=== PATIENT | male | born 1960 | race Two or more races ===

== ENCOUNTER 2024-11-02 11:08 | Inpatient (IN) | payer OTHER ==
[2024-11-02 11:34] VITALS: BMI 29.2
[2024-11-02] MEDS ORDERED: DICYCLOMINE HCL 10 MG CAPSULE PO PRN (11:35)
[2024-11-02] MEDS ORDERED: ACETAMINOPHEN 325 MG TABLET (FP) PO PRN (11:35)
[2024-11-02] MEDS ORDERED: LOPERAMIDE HCL 2 MG CAPSULE PO PRN (11:35)
[2024-11-02] MEDS ORDERED: guaiFENesin 600 MG TABLET.ER (FP) PO PRN (11:35)
[2024-11-02] MEDS ORDERED: BENZOCAINE/MENTHOL (CHLORASEPTIC ) LOZENGE MM PRN (11:35)
[2024-11-02] MEDS ORDERED: ONDANSETRON *ODT* 4 MG TABLET SL PRN (11:35)
[2024-11-02] MEDS ORDERED: MAGNESIUM HYDROX 2400MG/30ML ORAL SUSPENSION 30 ML CUP PO PRN (11:35)
[2024-11-02] MEDS ORDERED: POLYETHYLENE GLYCOL (HEALTHYLAX) 3350 17 GM PACKET PO PRN (11:35)
[2024-11-02] MEDS ORDERED: BENZONATATE 200 MG CAPSULE PO PRN (11:35)
[2024-11-02] MEDS ORDERED: METHOCARBAMOL 500 MG TABLET PO PRN (11:35)
[2024-11-02] MEDS ORDERED: MAG HYDROX/AL HYDROX/SIMETH 30 ML UNIT-DOSE CUP PO PRN (11:35)
[2024-11-02] MEDS ORDERED: IBUPROFEN 400 MG TABLET (FP) PO PRN (11:35)
[2024-11-02] MEDS ORDERED: BISMUTH SUBSALICYLATE 524 MG/30 ML PO PRN (11:35)
[2024-11-02] MEDS ORDERED: NALOXONE (NARCAN) HCL 4 MG/0.1 ML SPRAY NS PRN (11:35)
[2024-11-02] MEDS ORDERED: LORazepam 2 MG/ML SDV VIAL ONE (11:43)
[2024-11-02] MEDS: LORazepam 2 MG/ML SDV VIAL IM ONE (11:49)
[2024-11-02] MEDS ORDERED: LISINOPRIL 10 MG TABLET ONE ×2 (12:51→12:53)
[2024-11-02] MEDS: LISINOPRIL 10 MG TABLET PO ONE (12:52)
[2024-11-02] MEDS: NALTREXONE HCL 50 MG TABLET PO ONE ×2 (14:03→14:05)
[2024-11-02] MEDS: IBUPROFEN 600 MG TABLET (FP) PO PRN (18:30)
[2024-11-02] MEDS: hydrOXYzine PAMOATE 25 MG CAPSULE (FP) PO PRN (18:30)
[2024-11-02] MEDS: MELATONIN 5 MG TABLETS PO SCH (22:58)
[2024-11-02] MEDS: THIAMINE 100 MG TABLET PO SCH (22:58)
[2024-11-02] MEDS: levETIRAcetam 500 MG TABLET (FP) PO SCH (22:59)
[2024-11-03 10:30] LABS: GLUCOSE,RANDOM 76.0 mg/dL (74-106)
[2024-11-03 10:31] LABS: TOT PROT 7.9 g/dl (6.4-8.2)
[2024-11-03 10:32] LABS: CO2 25.0 mmol/L (21-32)
[2024-11-03 10:33] LABS: ALK PHOS 107.0 U/L (40-150)
[2024-11-03] MEDS: LISINOPRIL 20 MG TABLET PO SCH (10:33)
[2024-11-03] MEDS: PRENATAL VITAMINS W/ FOLIC ACID TABLET (FP) PO SCH (10:33)
[2024-11-03 10:34] LABS: MCHC 32.7 g/dl (32.3-36.5); MEAN CELL VOLUME 95.2 fl (79.0-92.2); MEAN PLT VOLUME 11.5 fl (9.4-12.4); RDW 15.5 % (12.2-16.4)
[2024-11-03] MEDS: NALTREXONE HCL 50 MG TABLET PO SCH (10:34)
[2024-11-03 10:36] LABS: CREATININE 1.08 mg/dL (0.55-1.3); SGOT/AST 48.0 U/L (5-34); SGPT/ALT 18.0 U/L (0-55)
[2024-11-03] MEDS: PNEUMOC 20-VAL CONJ-DIP CRM/PF 0.5 ML SYRINGE IM ONE (12:35)
[2024-11-05 07:11] VITALS: RESP 17
[2024-11-05 17:47] VITALS: BP 141/86; PULSE 73; TEMP 97.5
[2024-11-05] MEDS: EPINEPHrine 1:1000 P/F - 1 MG/ML AMP IM ONE (18:20)
[2024-11-05] MEDS: prednisoLONE SODIUM PHOSPHATE 15 MG/5 ML ORAL SOLN BOTTLE PO ONE (18:32)
[2024-11-05] MEDS: diphenhydrAMINE HCL 12.5 MG/5 ML UNIT-DOSE CUPS PO ONE (18:33)
== END 2024-11-06 07:56 | disposition short-term general hospital (02) | DRG 775 ==
LOC: YASAS 11:08 → Y6N 13:09
PROVIDERS: ADMIT Family Medicine; ATTEND Counselor Addiction (Substance Use Disorder)
PROC: HZ2ZZZZ Detoxification Services for Substance Abuse Treatment (ICD-10-PCS; principal; 2024-11-02)
DX: F10.230 Alcohol dependence with withdrawal, uncomplicated (principal); F17.210 Nicotine dependence, cigarettes, uncomplicated; F32.A Depression, unspecified; I10 Essential (primary) hypertension; T78.3XXA Angioneurotic edema, initial encounter; T78.49XA Other allergy, initial encounter; X58.XXXA Exposure to other specified factors, initial encounter
CPT/HCPCS: 36415; 80053; 80307; 82140; 85027; 86780; 90677; 93005; 93010; G0009

== ENCOUNTER 2024-11-05 18:43 | Emergency (ER) | payer OTHER ==
[2024-11-05 19:23] VITALS: BMI 28.0
[2024-11-05] MEDS ORDERED: DEXAMETHASONE SOD PHOSPHATE 10 MG/1 ML VIAL ONE (19:27)
[2024-11-05] MEDS: DEXAMETHASONE SOD PHOSPHATE 10 MG/1 ML VIAL IM ONE (19:34)
[2024-11-05 20:49] LABS: ABSOLUTE IMMATURE GRANULOCYTES 0.01 x10^3/uL (0.0-0.031)
[2024-11-05 20:51] LABS: BASOPHILS # 0.03 x10^3/uL (0.01-0.08); EOSINOPHIL % 14.8 % (0.8-7.0); EOSINOPHILS # 0.49 x10^3/uL (0.04-0.54); IMMATURE PLATELET FRACTION # 6.40 x10^3/uL; MCHC 32.8 g/dl (32.3-36.5); MEAN CELL VOLUME 95.1 fl (79.0-92.2); MEAN PLT VOLUME 10.2 fl (9.4-12.4); MONOCYTE # 0.22 x10^3/uL (0.30-0.82); MONOCYTE % 6.7 % (5.3-12.2); RDW 14.6 % (12.2-16.4)
[2024-11-05 20:55] LABS: BG HCT 38.0 % (35.4-49); VENOUS BASE EXCESS 3.4 mmol/L (-2-2); VENOUS O2 SATURATION 46.9 % (70-80); VENOUS PCO2 58.5 mmHg (38-52); VENOUS PH 7.337 (7.310-7.410)
[2024-11-05 20:58] LABS: INR 0.94 (0.83-1.09); PROTHROMBIN TIME (PATIENT) 10.3 SEC (9.7-13.0)
[2024-11-05 21:01] LABS: ACTIVATED PTT 29.8 SECONDS (25.2-36.5)
[2024-11-05 21:19] LABS: GLUCOSE,RANDOM 94.0 mg/dL (74-106); TOT PROT 6.2 g/dl (6.4-8.2)
[2024-11-05 21:20] LABS: CO2 27.0 mmol/L (21-32)
[2024-11-05 21:21] LABS: ALK PHOS 89.0 U/L (40-150)
[2024-11-05 21:24] LABS: SGOT/AST 34.0 U/L (5-34); SGPT/ALT 21.0 U/L (0-55)
[2024-11-05 21:25] LABS: CREATININE 1.16 mg/dL (0.55-1.3)
[2024-11-05 21:47] LABS: HCV DIAGNOSTIC IN-HOUSE W/RFLX NON-REACTIVE (NONREACTIVE)
[2024-11-05 21:49] LABS: HIV INTERPRETATION NEGATIVE (NEGATIVE)
[2024-11-05] MEDS ORDERED: KETOROLAC TROMETHAMINE 15 MG/ML VIAL IVPUSH PRN (21:57)
[2024-11-05] MEDS ORDERED: FAMOTIDINE 20 MG/50 ML IVPB 20 MG/50 ML MG IVPB ONE (22:28)
[2024-11-05] MEDS: D5-1/2NS+20 MEQ KCL - 20 MEQ/1,000 ML INFUS.BAG IV SCH (22:30)
[2024-11-05] MEDS: FAMOTIDINE 20 MG/50 ML IVPB 20 MG/50 ML MG IVPB SCH (22:32)
[2024-11-06] MEDS ORDERED: DEXAMETHASONE SOD PHOSPHATE 4 MG/1 ML VIAL ONE ×2 (02:37→08:21)
[2024-11-06] MEDS: DEXAMETHASONE SOD PHOSPHATE 4 MG/1 ML VIAL IVPUSH SCH (02:43)
[2024-11-06 05:56] VITALS: TEMP 97.5
[2024-11-06 06:43] LABS: MCHC 33.0 g/dl (32.3-36.5); MEAN CELL VOLUME 93.9 fl (79.0-92.2); MEAN PLT VOLUME 12.0 fl (9.4-12.4); RDW 14.4 % (12.2-16.4)
[2024-11-06 06:49] LABS: GLUCOSE,RANDOM 168.0 mg/dL (74-106)
[2024-11-06 06:50] LABS: TOT PROT 6.9 g/dl (6.4-8.2)
[2024-11-06 06:51] LABS: CO2 26.0 mmol/L (21-32)
[2024-11-06 06:52] LABS: ALK PHOS 84.0 U/L (40-150)
[2024-11-06 06:55] LABS: CREATININE 1.07 mg/dL (0.55-1.3); SGOT/AST 34.0 U/L (5-34); SGPT/ALT 22.0 U/L (0-55)
[2024-11-06] MEDS ORDERED: amLODIPine BESYLATE 5 MG TABLET (FP) ONE (10:53)
[2024-11-06 11:02] VITALS: BP 142/87; RESP 16
[2024-11-06] MEDS: amLODIPine BESYLATE 5 MG TABLET (FP) PO SCH (11:03)
[2024-11-06] MEDS: ENOXAPARIN NA (PORCINE) 40 MG/0.4 ML DISP.SYRIN SQ SCH (11:08)
[2024-11-06] MEDS ORDERED: predniSONE 20 MG TABLET (UD) PO SCH (12:00)
[2024-11-06 13:00] VITALS: PULSE 90
[2024-11-06] MEDS ORDERED: FAMOTIDINE 10 MG TABLET PO SCH (22:00)
== END 2024-11-06 13:03 | disposition home or self-care (01) ==
LOC: JER 18:43 → JERBED 23:15 → UNDOADMOB 23:15 → JER 11-06 13:03
PROC: 3E023GC Introduction of Other Therapeutic Substance into Muscle, Percutaneous Approach (ICD-10-PCS; principal; 2024-11-05)
DX: R22.0 Localized swelling, mass and lump, head (principal)
CPT/HCPCS: 36415; 71045-TC-FY; 80053; 82803; 85025; 85027; 85610; 85730; 86160; 86161; 86803; 87389; 93005; 93010; 99285-25; J1100